=== PATIENT | male | born 1950 | race Caucasian/White ===

== ENCOUNTER → 2016-08-08 | Outpatient (CLI) | payer BC ==
--- NOTE | 2016-08-08 13:52 | Diagnostic Imaging Report ---
PROCEDURE: MR imaging cervical spine without contrast. TECHNIQUE: Multiplanar, multisequence MR imaging of the cervical spine was performed without contrast. INDICATION: Neck and shoulder pain for several months. No history of acute trauma. FINDINGS: Sagittal view shows good alignment of the vertebral bodies. Body height is well maintained throughout. The atlantoaxial joint is in good alignment. There is noted hemangioma in the T2 vertebral body. The cervical cord is uniform throughout with no evidence of increased T2 signal. Central canal is not distended. C2-C3, C3-C4, C4-C5: The discs show normal contour. Facet and ligaments show no hypertrophy. C5-C6: There is loss of disc space height. Hypertrophic lipping of the endplate noted anteriorly. There is moderate central disc protrusion with some bony hypertrophy of the uncovertebral joint, both right and left. This is causing mild encroachment upon the lateral recess and neuroforamen. C6-C7: There is loss of disc space height with hypertrophic endplate change. Hypertrophy of the uncovertebral joint noted both right and left. Mild central disc protrusion. There is mild encroachment upon the lateral recess and neuroforamen. C7-T1: The disc appears normal. No facet or ligamentous hypertrophy. The surrounding soft tissues of the neck appear normal. IMPRESSION: 1. Moderate to severe degenerative disc disease at C5-C6 and C6-C7 with associated hypertrophic endplate changes and mild disc protrusions at both levels. No central canal stenosis. Dictated by: Dictated on workstation # [id number]
== END ==
LOC: RAD 12:53
PROVIDERS: ATTEND Family Medicine
DX: M54.2 Cervicalgia (principal)
CPT/HCPCS: 72141

== ENCOUNTER → 2016-08-25 | Outpatient (CLI) | payer BC ==
[~2016-08-25] MED LIST: methylPREDNISolone 80 MG/ML (DEPO MEDROL) VIAL IM ONE
--- NOTE | 2016-08-29 12:28 | PAIN MANAGEMENT ---
Date of note: 08/25/2016 PROCEDURE: C6-C7 epidural steroid injection under fluoroscopic guidance. TOTAL FLUOROSCOPIC TIME: 16 seconds This is a 66-year-old male patient under the care of Dr. Pola Blue. Anesthesia was consulted for the purposes of cervical epidural steroid injection secondary to degenerative disc disease. The patient has pain throughout his neck, shoulders, and scapular area. It does not radiate down into the arms at this point in time. Based on MRI results as well as patient indicating the worse of his pain by touch, we decided to proceed forward with a C6-C7 epidural steroid injection. The patient was taken to the operating room for use of fluoroscopic guidance for needle tip placement. The patient was placed in the left lateral decubitus position. Orders for procedure verified. Patient denies any bleeding tendencies. After informed consent obtained, the patient was positioned for the cervical epidural steroid injection. The area was prepped and draped using aseptic technique. The skin and overlying tissues were localized with 3 mL of 1% Preservative-Free lidocaine using a 25-gauge needle. A 20-gauge Tuohy needle was advanced, using "loss of resistance" technique, to the epidural space. No blood, cerebral spinal fluid, pain, or paresthesia noted on entry of the epidural space. A 1 mL solution of Depo-Medrol 80 mg was injected slowly without mass volume effect. The needle was then removed. She was then turned to the sitting position where she remained for approximately 10 minutes. She was then release with vital signs stable and faculties intact. She is asked to follow up with me via my cellphone in 3 days. The patient states she understands discharges instructions and I will follow her from there.
== END ==
LOC: PMC 12:18
PROVIDERS: ATTEND Family Medicine
DX: M54.2 Cervicalgia (principal)